=== PATIENT | female | born 1975 | race Caucasian/White ===

== ENCOUNTER 2020-10-18 12:38 | Outpatient (REF) | payer OTHER, MEDICAID, SELFPAY | END 2020-10-18 12:39 | disposition home or self-care (01) | LOC: HO.LAB 12:38 | PROVIDERS: Visit Provider Internal Medicine | DX: Z20.822 Contact with and (suspected) exposure to COVID-19 (principal) | CPT/HCPCS: C9803; U0003; U0005 ==

== ENCOUNTER 2020-11-22 13:47 | Outpatient (REF) | payer OTHER, MEDICAID, SELFPAY | END 2020-11-22 13:48 | disposition home or self-care (01) | LOC: HO.LAB 13:47 | PROVIDERS: Visit Provider Internal Medicine | DX: Z20.822 Contact with and (suspected) exposure to COVID-19 (principal) | CPT/HCPCS: C9803; U0003; U0005 ==

== ENCOUNTER 2024-03-24 04:49 | Emergency (ER) | payer MEDICAID, SELFPAY ==
--- NOTE | ~2024-03-24 | XR_ITS ---
EXAMINATION: XR CHEST CLINICAL INFORMATION: SARS COMPARISON: None available. TECHNIQUE: Frontal view of the chest was obtained. FINDINGS: No significant abnormality is noted involving the heart, lungs, mediastinum, bony thorax or soft tissues. XR/XR chest 1V IMPRESSION: Unremarkable chest examination. Electronically signed by: Matias Francisco MD 03/24/2024 07:25 AM [facility]
--- OUTSIDE RECORDS SUMMARY | 2024-03-24 05:59 | XMS_ITS | Clinical Summary ---
Author Organization [facility] Address [address] [place] [address] Care Team Providers Care Curriculum Designer Name Role Phone Ariella Jackman MD Primary Care Provider [phone] Allergies No known active allergies Medications Medication Sig Dispensed Refills Start Date End Date Status UNABLE TO FIND Emollient (collagen EX) Active ASCORBIC ACID, VITAMIN C, ORAL Take?by mouth. Ac tive bisacodyL (DULCOLAX) 5 mg EC tablet Take by mouth. Take 2 tablets by mouth right before your first dose of liquid prep. Active polyethylene glycol (MIRALAX) 17 gram packet Take 240 mL by mouth once for 1 dose. May substitue for any PEG. Follow instructions given by office. - Oral Active tirzepatide, weight loss, (Zepbound) 2.5 mg/0.5 mL solution Inject 2.5 mg under the skin every 7 (seven) days. 2 mL 12/30/2023 Active Active Problems Problem Noted Date Diagnosed Date Class 2 obesity due to exces s calories with body mass index (BMI) of 38.0 to 38.9 in adult 12/30/2023 Anemia in 11/19/2023 Encounters Date Type Department Care Team Description 12/30/2023 9:30 AM EST Consult Bariatric Surgery - [address] [place] [address] Sharita Dimas, PA Class 2 obesity due to excess calories with body mass index (BMI) of 38.0 to 38.9 in adult, unspecified whether serious comorbidity present (Primary Dx) from Last 3 Months Immunizations Name Administration Dates Next Due Moderna SARS-CoV-2 COVID-19, mRNA, LNP-S, preservative free 03/28/2022,08/14/2020,06/22/2020 Surgical History Surgery Date Site/Laterality Comments LAPAROSCOPIC GASTRIC BANDING PROCEDURE: LAP ADJUSTABLE GASTRIC BAND CHOLECYSTECTOMY PROCEDURE: TX CHOLECYSTECTOMY Medical History Medical History Date Comments Anemia in DX:Anemia in Family History Medical History Relation Name Comments Hyperlipidemia Father Other cancer Maternal Grandfather Heart attack Maternal Grandmother Diabetes Mother Hypertension Mother Lung cancer Mother Thyroid disease Son Relation Name Status Comments Father Alive Maternal Grandfather Maternal Grandmother Mother Paternal Grandfather unknown Paternal Grandmother unknown Son Alive Autism, ADHD, b lood disease Social History Tobacco Use Types Packs/Day Years Used Date Smoking Tobacco: Former Cigarettes Q uit: 02/16/2017 Smokeless Tobacco: Never Alcohol Use Standard Drinks/Week Comments Yes 0 (1 standard drink = 0.6 oz pur e alcohol) Sex and Gender Information Value Date Recorded Sex Assigned at Not on file Gender Identity Not on file Sexual Orientation Not on file Job Start Date Occupation Industry Not on file Not on file Not on file Obstetrics History Last Filed Vital Signs Vital Sign Reading Time Taken Comments Blood Pressure 172/74 12/30/2023 9:45 AM EST Pulse 120 12/30/2023 9:45 AM EST Temperature 37.1 ??C (98.7 ??F) 12/30/2023 9:45 AM ES T Respiratory Rate - - Oxygen Saturation - - Inhaled Oxygen Concentration - - Weight 88.9 kg (196 lb) 12/30/2023 9:45 AM EST Height 149.9 cm (4' 11 ) 12/30/2023 9:45 AM EST Body Mass Index 39.59 12/30/2023 9:45 AM EST Plan of Treatment Upcoming Encounters Date Type Department Care Team (Late st Contact Info) Description 04/05/2024 9:15 AM EST Office Visit Bariatric Surgery - [facility] [address] [id number] Sharita Dimas PA [address] [facility] [address] [place] [address] Health Maintenance Due Date Last Done Comments Hepatitis B Vaccines (1 of 3 - 19+ 3-dose series) 11/22/1995 Breast Cancer Screening 09/25/2020 09/25/2018 Colorectal Cancer Screening: Colonoscopy 01/15/2022 Depression Screening 01/15/2022 HIV Screening 01/15/2022 Hepatitis C Screening 01/15/2022 Social Influencers of Health Screening 01/15/2022 COVID-19 Vaccine ( season) 2023 03/28/2022, 08/14/2020, 06/22/2020 Influenza Vaccine (#1) 2023 , 03/15/2018, 12/10/2009, Additional history exists Cervical Cancer Screening: Pap Smear 10/28/2025 10/28/2022 Cholesterol Screening (Lipid Panel) 07/04/2027 07/03/2022 DTaP,Tdap,and Td Vaccines (4 - Td or Tdap) 03/15/2028 03/15/2018, 12/13/2009, 09/16/2005 MMR Vaccines Aged Out 05/22/2018 No longer eligi ble based on patient's age to complete this topic HIB Vaccines Aged Out No longer eligi ble based on patient's age to complete this topic HPV Vaccines Aged Out No longer eligi ble based on patient's age to complete this topic Hepatitis A Vaccines Aged Out No long er eligible based on patient's age to complete this topic IPV Vaccines Aged Out No longer eligi ble based on patient's age to complete this topic Meningococcal ACWY Vaccine Aged Out N o longer eligible based on patient's age to complete this topic Pneumococcal Vaccine: Pediatrics (0 to 5 Years) and At-Risk Patients (6 to 64 Years) Aged Out No longer eligible based on patient's age to complete this topic RSV Immunization Patients Under 20 months Aged Out No longer eligible based on patient's age to complete this topic Varicella Vaccines Aged Out No longer eligible based on patient's age to complete this topic Procedures Procedure Name Priority Date/Time Associated Diagnosis Comments HM PAP SMEAR Routine 10/28/2022 LIPID PANEL Routine 07/03/2022 SCR MAMMO BI INCL CAD Routine 09/25/2018 12:28 PM EDT Encounter for screening mammogram for malignant neoplasm of breast from Last 3 Months or Most Recently Relevant to Health Maintenance Results * Hm Pap Smear (10/28/2022) Pap smear No interpreta tion,abstr acted Historical Provider MD JASMYNE SWAIN E * (ABNORMAL) Lipid panel (07/03/2022) LDL/HDL Ratio 3 4 Triglycerides 83 0 - 150 mg/dL Cholesterol 166 0 - 200 mg/dL HDL 49 40 mg/dL LDL Cholesterol 101(A) 0 - 100 mg/dL Blood Venous blood specimen / Unknown Historical Provider LAB BLOOD ORDERAB LES * SCR MAMMO BI INCL CAD (09/25/2018 12:28 PM EDT) Anatomical Region Laterality Modality Radiographic Antonette ging 09/24/2018 9:38 AM EDT Narrative 09/26/2018 1:33 PM EDT This is a summary report. The complete report is available in the patient's medical record. If you cannot access the medical record, please contact the sending organization for a detailed fax or copy. Baseline screening, full field digital mammography, reviewed with CAD. ?? The breast tissue is dense, limiting sensitivity. ??No suspicious mass, architectural distortion or suspicious calcifications are identified. IMPRESSION: : Dense breast tissue, limiting the sensitivity of mammography. No mammographic evidence of malignancy. BIRADS 1-Negative; N. 5 year breast cancer risk assessment 0.3 % Lifetime breast cancer risk assessment 5.6 % Breast cancer risk category Low (<15%) Procedure Note Mario Weinstein - 02/04/2022 This is a summary report. The complete report is available in thepatient's medical record. If you cannot access the medical record, pleasecontact the sending organization for a detailed fax or copy. Baseline screening, full field digital mammography, reviewed with CAD.The breast tissue is dense, limiting sensitivity. No suspicious mass,architectural distortion or suspicious calcifications are identified. IMPRESSION: : Dense breast tissue, limiting the sensitivity of mammography. Nomammographic evidence of malignancy. BIRADS 1-Negative; N. 5 year breast cancer risk assessment 0.3 % Lifetime breast cancer risk assessment 5.6 % Breast cancer risk category Low (<15%) Rita [facility] IMG XR PROCEDURES from Last 3 Months or Most Recently Relevant to Health Maintenance Care Teams Curriculum Designer Relationship Specialty Start Date End Date Ariella Jackman MD [address] [place] [id number] PCP - General 05/29/22
--- NOTE | 2024-03-24 06:42 | ED_ITS ---
HPI - URI/Sore Throat General Stated Complaint: Flu Symptoms Time Seen by Provider: 03/24/24 06:38 Source: patient Mode of arrival: ambulatory Limitations: no limitations History of Present Illness ED Provider: Andrei Raza PA-C HPI Narrative: 48 yo female presenting to the ER for evaluation of 2 days of flu-like symptoms. She reports headache, body aches, cough, runny nose, nasal congestion, back pains, fever, chills and generally not feeling well. She states her son had similar symptoms and now that she is sick she can no longer take care of him. She states her legs, back and head are killing her. She can't lay down because she feels restless. She has had decreased PO intake and nausea but no abdominal pain, vomiting or diarrhea. No chest pain or difficulty breathing. MD elicited complaint: fever, cough, nasal congestion and other (body aches, headache) Onset (ago): day(s) (2) Consistency: progressively worsening Severity: severe Description of mucous: clear Able to tolerate fluids by mouth: Yes Exacerbating factors: nothing Relieving factors: nothing Context: sick contacts Associated symptoms: fever, chills, myalgias, headache, rhinorrhea, nasal congestion, sore throat, cough and nausea Treatments prior to arrival: none Related Data Previous Rx's ?Medication ?Instructions ?Recorded sjutppkylb-txyekrmhloybt-idcbwshl 1 cap PO Q8H PRN headache #10 caps 03/24/24 50 mg-300 mg-40 mg capsule (Fioricet) ketorolac 10 mg tablet 10 mg PO Q8H PRN pain 3 days #9 03/24/24 tabs ondansetron 4 mg disintegrating 4 mg PO Q8H PRN nausea and 03/24/24 tablet vomiting #7 tabs Allergies Allergy/AdvReac Type Severity Reaction Status Date / Time No Known Allergies Allergy Verified 03/24/24 07:32 Review of Systems Review of Systems: Yes all other systems are reviewed and are negative [facility] Social History Social History Advance Directives: No Advance Directives Information Provided: No Physical Exam Vital Signs: Vital Signs: Last Vital Signs Temp 98.3 F 03/24/24 07:53 Pulse 92 03/24/24 07:53 Resp 19 03/24/24 07:53 BP 104/59 L 03/24/24 07:53 Pulse Ox 97 03/24/24 07:53 O2 Del Method Room Air 03/24/24 07:53 Appearance: Restless, appears unwell, pacing. Oriented X3. No acute distress. Head: normocephalic, atraumatic. Eyes: Pupils equal, round and reactive to light. ENT: Pharynx normal. No tonsillar swelling or exudate. Neck: Normal inspection. Neck supple. CVS: Normal heart rate and rhythm. Pulses normal. Respiratory: No respiratory distress. Breath sounds normal. Abdomen: Soft and nontender. +BS x4 Skin: Skin warm and dry. Normal skin color. Normal skin turgor. No rashes. Extremities: No lower extremity edema. No joint swelling. Neuro/psych: Oriented X 3. No motor deficit. No sensory deficit. Steady gait. CN II-XII intact. Normal speech and cognition. Medications Administered Discontinued Medications Generic Name Dose Route Start Last Admin Trade Name Freq PRN Reason Stop Dose Admin Acetaminophen 975 mg 03/24/24 07:32 03/24/24 07:50 Acetaminophen 325 Mg Tablet PO 03/24/24 07:33 975 mg ONCE ONE Administration Ketorolac Tromethamine 30 mg 03/24/24 07:32 03/24/24 07:50 Ketorolac Tromethamine 30 Mg/Ml Vial IM 03/24/24 07:33 30 mg ONCE ONE Administration Ondansetron HCl 4 mg 03/24/24 07:32 03/24/24 07:50 Ondansetron Odt 4 Mg Tab.Rapdis TRANSLINGU 03/24/24 07:33 4 mg ONCE ONE Administration Medical Decision Making Medical Decision Making [facility] Narrative: 48 yo female with no significant medial problems presents to the ER for evaluation of flu-like symptoms for the last 2 days. son is home sick with similar complaints. VS reviewed. exam is unremarkable. patient tested positive for flu A cxr is normal given toradol, tylenol and zofran in the ER with improvement in her symptoms. tolerating PO. stable for d/c home with supportive care. Differential Diagnosis Differential Diagnoses: The differential diagnosis associated with the presentation includes strep, covid, flu, rsv, other viral syndrome, bronchitis, pneumonia, sinus infection Lab Data [facility] Lab Attestation statement: I reviewed the patient's lab results. Labs: Lab Results 03/24/24 Range/Units 06:31 Influenza Type A (PCR) POSITIVE A (Negative) Influenza Type B (PCR) NEGATIVE (Negative) RSV RNA Qual (PCR) NEGATIVE (Negative) SARS-CoV-2 RNA (RT-PCR) NEGATIVE (Negative) Independent Interpretation I performed an independent interpretation of an: Plain X-Ray Interpretation: cxr clear with no focal infiltrate or effusion Radiology Impression Discussion of test interpretation with radiology: I have reviewed the radiol ogist's reading. External Record Review External record reviewed: Prior outpatient labs Prescription Management I considered prescription management with: Pain Medication, Antiviral and Antibiotic Critical Care Time Critical Care Time Critical Care Time: No Discharge Plan Discharge Clinical Impression: Influenza A Patient Disposition: Home, Self-Care Instructions: Influenza (DC) Additional Instructions: You were found to be Influenza A POSITIVE today. Your chest x-ray and oxygen levels were normal. Rest. Drink plenty of fluids. Do not go out in public while you are not feeling well. Take over the counter cold/flu medications as needed for your symptoms. Take the prescribed medications as directed. Follow up with your doctor this week. If you develop new or worsening symptoms call 911 or come back to the ER for further evaluation. Prescriptions: New ondansetron 4 mg tablet,disintegrating 4 mg PO Q8H PRN (Reason: nausea and vomiting) Qty: 7 0RF ketorolac 10 mg tablet 10 mg PO Q8H PRN (Reason: pain) 3 Days Qty: 9 0RF opqrnllaro-rnxoyleyjbmuk-pqsj [Fioricet] 50-300-40 mg capsule 1 cap PO Q8H PRN (Reason: headache) Qty: 10 0RF Print Language: Serbian
[2024-03-24 07:20] LABS: Influenza A PCR POSITIVE (Negative); Influenza B PCR NEGATIVE (Negative); Resp Syncy Virus RNA Qual PCR NEGATIVE (Negative); SARS COV2 PCR INHOUSE NEGATIVE (Negative)
[2024-03-24] MEDS: Ketorolac Tromethamine 30 MG/ML VIAL IM (07:50)
[2024-03-24] MEDS: Acetaminophen 325 MG TABLET 975 MG PO (07:50)
[2024-03-24] MEDS: Ondansetron ODT 4 MG TAB.RAPDIS TRANSLINGU (07:50)
[2024-03-24 07:53] VITALS: BP 104/59; PULSE 92; RESP 19; TEMP 36.8; O2SAT 97
[2024-03-24 08:23] VITALS: BP 104/59; PULSE 92; RESP 19; TEMP 36.8; O2SAT 97
== END 2024-03-24 08:27 | disposition home or self-care (01) ==
PROVIDERS: Emergency Provider Emergency Medicine
DX: J10.1 Influenza due to other identified influenza virus with other respiratory manifestations (principal); R51.9 Headache, unspecified; R05.9 Cough, unspecified; R09.81 Nasal congestion; M54.50 Low back pain, unspecified; M79.10 Myalgia, unspecified site; R50.9 Fever, unspecified; Z03.818 Encounter for observation for suspected exposure to other biological agents ruled out
CPT/HCPCS: 0241U; 71045; 96372; 99282; 99284; J1885

== ENCOUNTER → 2024-03-24 07:00 | Outpatient (BNV) | payer MEDICAID, SELFPAY | PROVIDERS: Emergency Provider Emergency Medicine; Visit Provider Radiology Diagnostic Radiology | DX: J09.X2 Influenza due to identified novel influenza A virus with other respiratory manifestations (principal); B97.21 SARS-associated coronavirus as the cause of diseases classified elsewhere | CPT/HCPCS: 71045 ==